=== PATIENT | male | born 1990 | race Caucasian/White ===

== ENCOUNTER 2023-04-21 22:06 | Emergency (ER) | payer SELFPAY ==
[2023-04-21 22:07] VITALS: BP 131/101; PULSE 103; RESP 18; TEMP 37.4; O2SAT 94; BMI 20.9
[2023-04-21] MEDS: HYDROmorphone 1 mg/mL INJ 1 mL IVP ×2 (22:23→23:36)
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
[2023-04-22 00:18] VITALS: BP 122/80; PULSE 72; RESP 16; O2SAT 96
[2023-04-22] MEDS: mupirocin oint 22 gm 1 APPLIC TOPICAL (00:18)
== END 2023-04-22 00:20 | disposition home or self-care (01) ==
PROVIDERS: Emergency Provider Emergency Medicine
DX: T23.251A Burn of second degree of right palm, initial encounter (principal); T23.241A Burn of second degree of multiple right fingers (nail), including thumb, initial encounter; T23.252A Burn of second degree of left palm, initial encounter; T23.242A Burn of second degree of multiple left fingers (nail), including thumb, initial encounter; X01.8XXA Other exposure to uncontrolled fire, not in building or structure, initial encounter
CPT/HCPCS: 96374; 96376; 99284; J1170